=== PATIENT | male | born 1990 | race Two or more races ===

== ENCOUNTER 2017-12-22 07:49 | Emergency (ER) | payer OTHER ==
[~2017-12-22] VITALS: Ht 162.6 cm; Wt 88.5 kg
--- NOTE | 2017-12-22 08:14 | PHYS DOC ---
Adult General HPI HPI Patient is a 27-year-old male who presents for evaluation of left ankle injury and pain. He states that he was jumping over a sabra yesterday and came down in the left ankle and felt and heard a sudden pop. He was able to initially walk on the ankle without much difficulty or pain the throat the day the swelling increased. He iced it at home. When he woke up today and try to walk the pain was worse. He does mention that he did walk to the emergency department from home today. He is alert and oriented 4, calm, and appears to be no distress. There is some swelling to the lateral side of the left upper foot. He denies previous injury to the left lower extremity and did not fall or injure anything else. Review of Systems Review of Systems Constitutional: Denies fever or chills [] Eyes: Denies change in visual acuity, redness, or eye pain [] HENT: Denies nasal congestion or sore throat [] Respiratory: Denies cough or shortness of breath [] Cardiovascular: No additional information not addressed in HPI [] GI: Denies abdominal pain, nausea, vomiting, bloody stools or diarrhea [] : Denies dysuria or hematuria [] Musculoskeletal: Denies back pain [] left foot/ankle pain Integument: Denies rash or skin lesions [] Neurologic: Denies headache, focal weakness or sensory changes [] Endocrine: Denies polyuria or polydipsia [] All other systems were reviewed and found to be within normal limits, except as documented in this note. Current Medications Current Medications Current Medications Medications (Trade) Dose Ordered Sig/[facility] Start Time Stop Time Status Last Admin Dose Admin Tramadol HCl (Ultram) 50 mg 1X ONCE 12/22/17 08:15 12/22/17 08:16 UNV Physical Exam Physical Exam Constitutional: Well developed, well nourished, no acute distress, non-toxic appearance. [] HENT: Normocephalic, atraumatic, bilateral external ears normal, oropharynx moist, no oral exudates, nose normal. [] Eyes: PERRLA, EOMI, conjunctiva normal, no discharge. [] Neck: Normal range of motion, no tenderness, supple, no stridor. [] Cardiovascular:Heart rate regular rhythm, no murmur [] Lungs & Thorax: Bilateral breath sounds clear to auscultation [] Abdomen: Bowel sounds normal, soft, no tenderness, no masses, no pulsatile masses. [] Skin: Warm, dry, no erythema, no rash. [] Back: No tenderness, no CVA tenderness. [] Extremities: no cyanosis, no clubbing, ROM intact, no edema. [] ttp and swelling over left lateral upper foot just inferior and anterior to the lateral malleolus, no malleolar tenderness, no fibular head ttp, FROM present, normal dp and tp pulses, normal sensation and strength Neurologic: Alert and oriented X 3, normal motor function, normal sensory function, no focal deficits noted. [] Psychologic: Affect normal, judgement normal, mood normal. [] EKG EKG [] Radiology/Procedures Radiology/Procedures [address] [address] IMAGING REPORT Signed PATIENT: IVON JOHN ACCOUNT: [id number] : 1990 LOCATION: ER AGE: 27 SEX: M EXAM STATUS: REG ER ORD. PHYSICIAN: MATEO KELLER DO REASON: left foot pain PROCEDURE: FOOT LEFT 3V INDICATION: Injury to foot and ankle. Patient heard a pop. Pain. Injury occurred while jumping sabra yesterday. TECHNIQUE: 3 views of the left ankle and 3 views of the left foot are submitted for review. No comparison for either exam is available. FINDINGS: Ankle: There is no fracture or dislocation. There is no soft tissue swelling. Foot: There is no fracture or dislocation. There is no soft tissue swelling. IMPRESSION: Negative for an acute fracture or dislocation involving the left foot or left ankle. Electronically signed by: Tony Romano MD (12/22/2017 8:45 AM) [facility] DICTATED AND SIGNED BY: TONY ROMANO MD DATE: 12/22/17 0843 CC: MATEO KELLER DO; SHALOM ASHTON DO, MPH ~ Course & Med Decision Making Course & Med Decision Making Pertinent Labs and Imaging studies reviewed. (See chart for details) @0855 - Patient updated on imaging results which do not show any acute traumatic pathology. Aircast splint applied and crutches along with education provided. Advised ice and anti-inflammatories such as Motrin for home. The patient has no further complaints and is stable for discharge at this time. Dragon Disclaimer Dragon Disclaimer This electronic medical record was generated, in whole or in part, using a voice recognition dictation system. Departure Departure: Impression: Primary Impression: Left ankle injury Additional Impression: Injury of left foot Disposition: HOME, SELF-CARE Condition: STABLE Referrals: SHALOM ASHTON DO, MPH (PCP) Patient Instructions: Ankle Pain, Ankle Sprain, Crutch Use Additional Instructions: Take the prescribed medication as needed. Return to the ER for new or worsening symptoms. Follow up with her primary care physician in the next 1-2 days. Scripts Tramadol Hcl (ULTRAM) 50 Mg Tablet 50 MG PO PRN Q6HRS PRN for PAIN, #10 TAB Prov: MATEO KELLER DO 12/22/17 Problem Qualifiers MATEO KELLER DO Dec 22, 2017 08:14
[2017-12-22] MEDS ORDERED: traMADol 50 MG TABLET PO ONE (08:45)
--- NOTE | 2017-12-22 08:48 | RAD ---
INDICATION: Injury to foot and ankle. Patient heard a pop. Pain. Injury occurred while jumping sabra yesterday. TECHNIQUE: 3 views of the left ankle and 3 views of the left foot are submitted for review. No comparison for either exam is available. FINDINGS: Ankle: There is no fracture or dislocation. There is no soft tissue swelling. Foot: There is no fracture or dislocation. There is no soft tissue swelling. IMPRESSION: Negative for an acute fracture or dislocation involving the left foot or left ankle. Electronically signed by: Tony Romano MD (12/22/2017 8:45 AM) [facility]
[2017-12-22] MEDS ORDERED: TRAM-48 PO (09:04)
[2017-12-22 09:25] VITALS: BP 148/91
== END 2017-12-22 09:25 | disposition home or self-care (01) ==
LOC: ER 07:49
DX: S99.912A Unspecified injury of left ankle, initial encounter (principal); X50.9XXA Other and unspecified overexertion or strenuous movements or postures, initial encounter; Y93.89 Activity, other specified; Y99.8 Other external cause status; Y92.89 Other specified places as the place of occurrence of the external cause
CPT/HCPCS: 73610; 73630; 99284; L4350